=== PATIENT | male | born 1995 | race Caucasian/White ===

== ENCOUNTER 2017-02-25 13:21 | Emergency (ER) | payer OTHER ==
--- NOTE | ~2017-02-25 | US115 ---
[facility] A Service of [facility] RADIOLOGY TEXT RESULTS PATIENT: RUSSELL WOLFE LOCATION: [facility] : [birth year] UNIT #: [id number] AGE: [address]: Nyasia Starkey MD SEX: M ORDER DR: [id number] [address] [address] [id number] E MR#: [id number] Acc #: [id number] NAME: RUSSELL WOLFE : 1995 SEX: M STUDY DATE/TIME: 02/25/2017 15:27 UNIT: [place] ROOM: STUDY DESCRIPTION: US Scrotum and Contents Attending Physician: Nyasia Starkey M.D. Ordering Physician: Nyasia Starkey M.D. Primary Care Physician: No Primary Care Physician MEDICAL IMAGING REPORT This report is preliminary unless electronic signature is present EXAM Scrotal ultrasound and Doppler. DATE OF STUDY 02/25/17 COMPARISON None. HISTORY Right greater than left scrotal swelling for 1 week and pain. FINDINGS On the right, there is a moderate hydrocele. The testicle is normal on haddad-scale and there is normal vascularity and normal arterial and venous waveforms are demonstrated. No mass is seen. The epididymis is thickened and hypervascular particularly at the tail, suggesting possible epididymitis. The left testicle is normal in echotexture without mass and vascularity is normal and normal Doppler waveforms are seen. The epididymis is normal in appearance and vascularity is normal. IMPRESSION Small right hydrocele with a thickened hypervascular right epididymis particularly at the epididymal tail suggesting epididymitis. Normal Doppler waveforms in both testicles. No evidence of torsion. No mass on either side. [facility] A Service of [facility] RADIOLOGY TEXT RESULTS PATIENT: RUSSELL WOLFE LOCATION: [facility] : [birth year] UNIT #: [id number] AGE: [address]: Nyasia Starkey MD SEX: M ORDER DR: Dictated by... Lei E. Hernandez, M.D. THIS IS AN ELECTRONICALLY VERIFIED REPORT Lei Hernandez M.D. at 02/25/2017 10:46 PM SCOTT/venita TD: 02/25/2017 22:20 JOB #: [id number] MEDICAL IMAGING REPORT Page 1 of 1 COPY
[2017-02-25 14:10] LABS: URINE SOURCE CLEAN CATCH
[2017-02-25 14:19] LABS: URINE APPEARANCE CLOUDY; URINE BILIRUBIN NEG (NEG); URINE BLOOD NEG (NEG); URINE COLOR YELLOW; URINE GLUCOSE 250 MG/DL (NEG); URINE KETONE NEG (NEG); URINE LEUKOCYTE ESTERASE 2+ (NEG); URINE NITRATE NEG (NEG); URINE PH 6.5 (5-8); URINE PROTEIN NEG (NEG); URINE SPECIFIC GRAVITY 1.028 (1.003-1.035)
[2017-02-25 14:22] LABS: CULTURE INDICATED? YES; URBCS1 AUWI 0-2 /[HPF] (0-2); URINE BACTERIA AUWI NEG (NEGATIVE); URINE SQUAMOUS EPITHELIAL CELL NONE SEEN /[HPF]; UWBCS1 AUWI 50-100 (0-5)
[2017-02-25 14:23] LABS: U HYALINE CASTS AUWI 0-2 /[LPF]
[2017-02-25 14:32] LABS: URINE WHITE BLOOD CELL CAST 0-2 /[HPF]
[2017-03-01 01:27] LABS: CHLAMYDIA TRACH Detected (Not Detected); N GONOR Detected (Not Detected)
== END 2017-02-25 17:30 | disposition home or self-care (01) ==
LOC: CED 13:21
PROVIDERS: Emergency Medicine
DX: N45.1 Epididymitis (principal); A64 Unspecified sexually transmitted disease; F20.9 Schizophrenia, unspecified; F17.210 Nicotine dependence, cigarettes, uncomplicated
CPT/HCPCS: 76870; 81003; 87086; 87491; 87591; 99284; J0696

== ENCOUNTER 2017-03-17 13:34 | Emergency (ER) | payer OTHER ==
[2017-03-17 14:48] LABS: URINE SOURCE CLEAN CATCH
[2017-03-17 14:52] LABS: URINE APPEARANCE CLEAR; URINE BILIRUBIN NEG (NEG); URINE BLOOD NEG (NEG); URINE COLOR YELLOW; URINE GLUCOSE NEG (NEG); URINE KETONE NEG (NEG); URINE LEUKOCYTE ESTERASE NEG (NEG); URINE NITRATE NEG (NEG); URINE PROTEIN NEG (NEG); URINE SPECIFIC GRAVITY 1.021 (1.003-1.035); URINE UROBILINOGEN 0.2 MG/DL (NEG)
[2017-03-17 15:02] LABS: CULTURE INDICATED? NO; URINE TRICHOMONAS NEGATIVE
[2017-03-22 10:50] LABS: CHLAMYDIA TRACH Not Detected (Not Detected); N GONOR Not Detected (Not Detected)
== END 2017-03-17 16:32 | disposition home or self-care (01) ==
LOC: CFTX 13:34 → CED 13:34 → CFTX 15:41
PROVIDERS: Nurse Practitioner
DX: N34.1 Nonspecific urethritis (principal); F20.9 Schizophrenia, unspecified; F17.210 Nicotine dependence, cigarettes, uncomplicated
CPT/HCPCS: 81003; 87491; 87591; 96372; 99283; J0696